=== PATIENT | female | born 1940 | race Caucasian/White ===

== ENCOUNTER → 2016-06-20 | Outpatient (CLI) | payer OTHER ==
[~2016-06-20] MED LIST: ALEVE220 MG PO; ALLERCLEAR10 MG PO; ALPRAZOLAM 0.50.5 MG PO; ASPIR 8181 MG PO; CALTRATE PLUS1 EACH PO; CO Q-10100 MG PO; SIMVASTATIN40 MG PO; VAGIFEM10 MCG VG
== END ==
LOC: CAT 12:48
DX: R91.1 Solitary pulmonary nodule (principal); K76.89 Other specified diseases of liver; N20.0 Calculus of kidney

== ENCOUNTER → 2017-07-02 | Outpatient (CLI) | payer OTHER | LOC: CAT 05:54 | DX: I25.10 Atherosclerotic heart disease of native coronary artery without angina pectoris (principal); N20.0 Calculus of kidney; K76.89 Other specified diseases of liver; R91.8 Other nonspecific abnormal finding of lung field ==

== ENCOUNTER → 2018-08-12 | Outpatient (CLI) | payer OTHER | LOC: CAT 10:01 | DX: R91.8 Other nonspecific abnormal finding of lung field (principal) ==

== ENCOUNTER → 2019-08-13 | Outpatient (CLI) | payer OTHER | LOC: CAT 13:22 | DX: R91.8 Other nonspecific abnormal finding of lung field (principal) ==